=== PATIENT | female | born 1965 ===

== ENCOUNTER → 2022-02-12 11:52 | Outpatient (REF) | payer OTHER, SELFPAY | LOC: ANHLAB 11:52 | PROVIDERS: Visit Provider Nurse Practitioner | DX: L57.0 Actinic keratosis (principal) | CPT/HCPCS: 88305 ==

== ENCOUNTER → 2022-04-08 10:21 | Outpatient (REF) | payer OTHER, SELFPAY | LOC: ANHLAB 10:21 | PROVIDERS: Visit Provider Nurse Practitioner | DX: C44.519 Basal cell carcinoma of skin of other part of trunk (principal) | CPT/HCPCS: 88305; 88331 ==

== ENCOUNTER → 2022-05-16 11:43 | Outpatient (REF) | payer OTHER, SELFPAY | LOC: ANHLAB 11:43 | PROVIDERS: Visit Provider Nurse Practitioner | DX: C44.729 Squamous cell carcinoma of skin of left lower limb, including hip (principal) | CPT/HCPCS: 88305 ==

== ENCOUNTER 2022-07-25 13:00 | Outpatient (NON) | payer OTHER, SELFPAY | END 2022-07-25 13:01 | disposition home or self-care (01) | PROVIDERS: Visit Provider Nurse Practitioner | DX: C44.629 Squamous cell carcinoma of skin of left upper limb, including shoulder (principal) | CPT/HCPCS: 88305 ==

== ENCOUNTER 2023-02-11 13:10 | Outpatient (NON) | payer OTHER, SELFPAY | END 2023-02-11 13:11 | disposition home or self-care (01) | PROVIDERS: Visit Provider Nurse Practitioner | DX: D49.2 Neoplasm of unspecified behavior of bone, soft tissue, and skin (principal) | CPT/HCPCS: 88305 ==

== ENCOUNTER 2023-05-15 12:57 | Outpatient (NON) | payer OTHER, SELFPAY | END 2023-05-15 12:58 | disposition home or self-care (01) | LOC: ANHLAB 05-16 13:00 | PROVIDERS: Visit Provider Nurse Practitioner | DX: L72.0 Epidermal cyst (principal) | CPT/HCPCS: 88305 ==

== ENCOUNTER 2023-11-06 07:00 | Outpatient (NON) | payer OTHER, SELFPAY | END 2023-11-06 07:01 | disposition home or self-care (01) | LOC: ANHLAB 11-07 07:42 | PROVIDERS: Visit Provider Nurse Practitioner | DX: L82.1 Other seborrheic keratosis (principal) | CPT/HCPCS: 88305 ==